=== PATIENT | female | born 1990 | race Caucasian/White ===

== ENCOUNTER 2017-05-17 03:21 | Emergency (ER) | payer BC, OTHER ==
[~2017-05-17] VITALS: Ht 167.6 cm; Wt 103.1 kg
[~2017-05-17 03:21] MED LIST: ALBU1AER9 INH; BCPILLS PO; IBUP-103 PO
[2017-05-17 03:25] VITALS: TEMP 36.3; Ht 167.6 cm; Wt 103.1 kg
--- NOTE | 2017-05-17 04:40 | EMERGENCY ROOM VISIT NOTE ---
History First contact with patient: 03:31 Chief Complaint: LEG PAIN,LEG INJURY Stated Complaint: SHARP CENTRALIZED PAIN IN LT LEG History of Present Illness The patient is a 26 year old female who presents to the Emergency Room with complaints of left leg pain. The patient reports that she feels like there is a ball in the back of her left thigh, under her buttock. She reports difficulty bending and extending the leg. She has a sensation of a charley horse in her calf. She states that the pain was shooting into her left hip. She was seen by her primary care provider and told that she could possibly have bursitis. She was prescribed steroids which did not improve her pain. She again contacted her primary care provider who referred her for physical therapy. She took a muscle relaxer which she had from a prior prescription and states this did not help her pain. The patient does take control pills. She does not smoke cigarettes, however she does "vape." She denies any recent travel or surgeries. She denies any history of blood clots. The patient rates her discomfort a 9/10. She denies numbness or weakness. Review of Systems A complete 10 point review of systems was reviewed with the patient with pertinent positives and negatives as per history of present illness. All else were negative. Past Medical/Surgical History Medical Problems: (1) Gastroenteritis (2) Gastroenteritis (3) Left hand pain (4) Pain of left thumb Surgical Problems: (1) Hx of appendectomy Family History Patient reports no known family medical history. Social History Smoking Status: Current Every Day Smoker Alcohol Use: occasionally Drug Use: none Marital Status: single Housing Status: lives with family Occupation Status: employed Current/Historical Medications Scheduled Control Pills ( Control Pills), 1 TAB PO DAILY Physical Exam Vital Signs Date Time Temp Pulse Resp B/P (MAP) Pulse Ox O2 Delivery O2 Flow Rate FiO2 05/17/17 05:48 72 17 155/94 100 05/17/17 04:48 67 18 149/79 100 Room Air 05/17/17 03:25 36.3 92 20 148/88 97 Room Air Physical Exam VITALS: Vitals are noted on the nurse's note and reviewed by myself. Vital signs stable. GENERAL: This is a 26-year-old female, in no acute distress, nondiaphoretic, well-developed well-nourished. HEART: Regular rate and rhythm without murmurs gallops or rubs. LUNGS: Clear to auscultation bilaterally without wheezes, rales or rhonchi. MUSCULOSKELETAL: No deformity of the left leg. No swelling or erythema noted. The patient is tender to palpation in the posterior left thigh and calf. NEURO: Patient was alert and oriented to person place and time. Medical Decision & Procedures ER Provider Diagnostic Interpretation: US VENOUS LEFT LOWER EXTREMITY: No sonographic evidence of left lower extremity DVT. No solid mass or fluid collection in the region of interest in the left lateral proximal thigh and hip area. Radiologist: Alyce Palafox MD Laboratory Results Test 05/17/17 03:55 Urine Test NEG (NEG) Medical Decision Differential diagnosis includes DVT, superficial thrombosis, musculoskeletal pain, lumbar radiculopathy, cellulitis, among others. The patient was evaluated as above. Ultrasound of the leg was obtained and shows no evidence of DVT. Patient was informed of the findings. Conservative measures were discussed with the patient. She was instructed to follow-up with her primary care provider for a recheck and return here for any worsening or new /concerning symptoms. She verbalized understanding of my assessment and treatment plan and was discharged home in good condition. Medication Reconcilliation Current Medication List: was personally reviewed by nj Blood Pressure Screening Patient's blood pressure: Elevated blood pressure Blood pressure disposition: Referred to PCP Impression Primary Impression: Leg pain, left Departure Information Dispostion Home / Self-Care Condition GOOD Referrals No Doctor, Assigned (PCP) Patient Instructions [facility] Additional Instructions For pain control, you can use the following [id number] medicines (if >12 yo): - Regular strength (325mg/tab) Tylenol (acetaminophen) 2 tabs every 4-6 hours as needed. Do not exceed 12 tablets in a 24 hour period. Avoid taking more than 4 grams (4000 mg) of Tylenol per day. This includes any other sources of acetaminophen you may take on a regular basis. - Regular strength (200 mg/tab) Advil (ibuprofen) 1-2 tabs every 4-6 hours as needed. Do not exceed a dose of 3200 mg per day. You may take [id number] naproxen, twice daily. Follow-up with your primary care provider this week for a recheck. Return to the emergency department with any worsening or new/concerning symptoms.
[2017-05-17 05:48] VITALS: BP 155/94; PULSE 72; O2SAT 100
--- NOTE | 2017-05-17 06:38 | DIAGNOSTIC IMAGING REPORT ---
L VENOUS DOPP LOWER EXT UNILAT CLINICAL HISTORY: left leg pain pain TECHNIQUE: Ultrasound COMPARISON STUDY: None FINDINGS: No evidence of deep venous thrombosis. No mass or collection site of a nodularity of the left thigh. IMPRESSION: Normal study. No evidence for mass by ultrasound criteria. No evidence of deep venous thrombosis. The above report was generated using voice recognition software. It may contain grammatical, syntax or spelling errors. Electronically signed by: Marlo Gómez M.D. 05/17/2017 6:37 AM Dictated Date/Time: 05/17/2017 6:36 AM
[2017-10-11] MEDS ORDERED: VNTHFA/IN INH (11:35)
[2017-10-11] MEDS ORDERED: OXYC-57 PO (11:35)
== END 2017-05-17 05:48 | disposition home or self-care (01) ==
LOC: C.EDB 03:22 → C.EDA 05:48
DX: M79.605 Pain in left leg (principal); F17.200 Nicotine dependence, unspecified, uncomplicated; Z90.89 Acquired absence of other organs